=== PATIENT | female | born 1995 ===

== ENCOUNTER 2024-03-15 12:33 | Outpatient (CLI) | payer OTHER | END 2024-03-15 12:35 | disposition home or self-care (01) | LOC: PRENATAL 12:33 | PROVIDERS: ATTEND Obstetrics & Gynecology Maternal & Fetal Medicine | DX: O36.80X0 Pregnancy with inconclusive fetal viability, not applicable or unspecified (principal); Z36.82 Encounter for antenatal screening for nuchal translucency; Z14.8 Genetic carrier of other disease; Z3A.12 12 weeks gestation of pregnancy ==

== ENCOUNTER 2024-05-08 08:12 | Outpatient (CLI) | payer OTHER | END 2024-05-08 08:13 | disposition home or self-care (01) | LOC: PRENATAL 08:12 | PROVIDERS: ATTEND Obstetrics & Gynecology Maternal & Fetal Medicine | DX: O44.00 Complete placenta previa NOS or without hemorrhage, unspecified trimester (principal); Z3A.20 20 weeks gestation of pregnancy ==

== ENCOUNTER → 2024-07-31 08:47 | Outpatient (CLI) | payer OTHER | END | disposition home or self-care (01) | LOC: PRENATAL 08:47 | PROVIDERS: ATTEND Obstetrics & Gynecology Maternal & Fetal Medicine | DX: O26.849 Uterine size-date discrepancy, unspecified trimester (principal); O36.8199 Decreased fetal movements, unspecified trimester, other fetus; Z3A.32 32 weeks gestation of pregnancy ==

== ENCOUNTER 2024-09-14 13:45 | Inpatient (IN) | payer OTHER ==
[~2024-09-14] VITALS: Ht 165.1 cm; Wt 3.2 kg
[2024-09-25] VITALS (11 sets, daily range): BP systolic 104–121; BP diastolic 60–78
[2024-09-25] MEDS ORDERED: PRENATAL TABLE1 EAC4 PO (07:01)
[2024-09-25 07:03] LABS: BASO % 0.1 % (0.1-1.2); EOS # 0.03 (0.04-0.54); EOS % 0.3 % (0.7-7.0); LYMPH # 1.47 (1.18-3.74); LYMPH % 14.6 % (19.3-53.1); MEAN PLATELET VOLUME 10.60 fl (9.4-12.4); MONO # 0.80 (0.24-0.82); MONO % 7.9 % (4.7-12.5); NEUT # 7.72 (1.56-6.13); NEUT % 76.6 % (34.0-71.1); RED CELL DISTRIBUTION WIDTH 14.2 % (11.6-14.4)
[2024-09-25 07:22] LABS: URINE APPEARANCE Clear; URINE BILIRRUBIN Negative (NEGATIVE); URINE BLOOD Negative; URINE COLOR Yellow; URINE GLUCOSE Negative (NEGATIVE); URINE KETONE Negative (NEGATIVE); URINE LEUKOCYTE Negative; URINE NITRATE Negative; URINE PROTEIN Trace (NEGATIVE); URINE UROBILINOGEN 0.2 E.U./dl
[2024-09-25 07:23] LABS: INR 0.94
[2024-09-25 07:25] LABS: URINE BACTERIA 3493.0 uL (0.0-1933); URINE EPITHELIAL CELLS 29.0 uL (0.0-38.8); URINE RBC 7.1 uL (0.0-20.8); URINE WBC 17.9 uL (0.0-23.2)
[2024-09-25 07:26] LABS: URINE CAST 1.02 uL (0.0-1.40)
[2024-09-25] MEDS ORDERED: OXYTOCIN 500 ML IV SCH (08:30)
[2024-09-25] MEDS ORDERED: MORPHINE SULFATE 4 MG/ML VIAL IV ONE (08:30)
[2024-09-25] MEDS ORDERED: ACETAMINOPHEN 325 MG TABLET PO PRN (17:15)
[2024-09-25] MEDS ORDERED: OXYTOCIN 20 UNITS/1000ML RL PIGGYBAG IV ONE (18:00)
[2024-09-25] MEDS ORDERED: ERYTHROMYCIN BASE OPHT 1GM EACH TUBE OP ONE (18:00)
[2024-09-25] MEDS ORDERED: NALOXONE HCL 0.4 MG/ML AMPUL IM ONE (18:00)
[2024-09-25] MEDS ORDERED: LIDOCAINE HCL 1% 10ML VIAL PERCUT ONE (18:00)
[2024-09-25] MEDS ORDERED: CHLORHEXIDINE GLUCONATE 120 ML BOTTLE TOP ONE (18:15)
[2024-09-26] VITALS: BP 99/65
[2024-09-26 06:24] LABS: BASO % 0.1 % (0.1-1.2); EOS # 0.00 (0.04-0.54); EOS % 0.0 % (0.7-7.0); LYMPH # 1.63 (1.18-3.74); LYMPH % 8.7 % (19.3-53.1); MEAN PLATELET VOLUME 11.30 fl (9.4-12.4); MONO # 1.66 (0.24-0.82); MONO % 8.8 % (4.7-12.5); NEUT # 15.43 (1.56-6.13); NEUT % 81.9 % (34.0-71.1); RED CELL DISTRIBUTION WIDTH 14.5 % (11.6-14.4)
[2024-09-26 08:52] VITALS: BP 100/60
[2024-09-26] MEDS ORDERED: PNV,CALCIUM 72/IRON/FOLIC ACID 1 TAB TABLET PO SCH (09:00)
[2024-09-26 17:19] VITALS: BP 100/67
[2024-09-27] VITALS: BP 99/61
[2024-09-27 09:48] VITALS: BP 131/79
== END 2024-09-27 15:37 | disposition home or self-care (01) | DRG 807 ==
LOC: LDR 09-25 06:16 → OB/GYN 09-25 13:45
PROVIDERS: ADMIT Obstetrics & Gynecology; ATTEND Obstetrics & Gynecology
PROC: 10E0XZZ Delivery of Products of Conception, External Approach (ICD-10-PCS; principal; 2024-09-25)
PROC: 0UQG7ZZ Repair Vagina, Via Natural or Artificial Opening (ICD-10-PCS; 2024-09-25)
PROC: 4A1HXCZ Monitoring of Products of Conception, Cardiac Rate, External Approach (ICD-10-PCS; 2024-09-25)
DX: O71.4 Obstetric high vaginal laceration alone (principal); Z37.0 Single live birth; Z3A.40 40 weeks gestation of pregnancy